=== PATIENT | female | born 1995 | race Caucasian/White ===

== ENCOUNTER 2017-09-30 13:14 | Inpatient (IN) | payer OTHER ==
[~2017-09-30] VITALS: Ht 162.6 cm; Wt 76.4 kg
[2017-09-30 15:40] VITALS: BP 146/89
[2017-09-30] MEDS ORDERED: TUBERCULIN, PURIFIED PROTEIN DERIVATIVE 5 TU/0.1 ML SYG ID ONE (16:00)
[2017-09-30] MEDS ORDERED: PROMETHAZINE HCL 25 MG TABLET PO PRN (16:00)
[2017-09-30] MEDS ORDERED: LOPERAMIDE HCL 2 MG CAPSULE PO PRN (16:00)
[2017-09-30] MEDS ORDERED: MAG HYDROX/AL HYDROX/SIMETH ES 30 ML SUSPENSION UDCUP PO PRN (16:00)
[2017-09-30] MEDS ORDERED: HydrOXYzine PAMOATE 50 MG CAPSULE PO PRN (16:00)
[2017-09-30] MEDS ORDERED: ZOLPIDEM TARTRATE 10 MG TABLET PO PRN (16:00)
[2017-09-30] MEDS ORDERED: ACETAMINOPHEN 325 MG TABLET PO PRN (16:00)
[2017-09-30] MEDS ORDERED: OLANZapine 5 MG RAPDIS TABLET PO PRN (16:00)
[2017-09-30] MEDS ORDERED: MAGNESIUM HYDROXIDE SUSPENSION 30 ML UDCUP PO PRN (16:00)
[2017-09-30] MEDS ORDERED: GuaiFENesin/D-METHORPHAN [SUGAR-FREE] 200-20MG/10 ML SYRUP UDCUP PO PRN (16:00)
[2017-09-30] MEDS ORDERED: LORazepam 2 MG TABLET PO PRN (16:00)
[2017-09-30] MEDS ORDERED: DiphenhydrAMINE HCL 50 MG/ML VIAL IM ONE (16:15)
[2017-09-30] MEDS ORDERED: LORazepam 2 MG/ML VIAL IM ONE (16:15)
[2017-09-30] MEDS ORDERED: HALOPERIDOL LACTATE 5 MG/ML VIAL IM ONE (16:15)
[2017-09-30 16:35] VITALS: BP 141/91
[2017-09-30 17:00] VITALS: BP 116/72
[2017-09-30] MEDS ORDERED: INFLUENZA VIRUS VACCINE QVS 2017-18 (3YR+)/PF 60 MCG/0.5 ML SYRINGE IM ONE (18:15)
[2017-09-30] MEDS: THIAMINE HCL 100 MG TABLET PO SCH (18:44)
[2017-09-30] MEDS ORDERED: OLANZapine 5 MG RAPDIS TABLET PO SCH (21:00)
[2017-10-01 06:46] VITALS: BP 117/63
[2017-10-01] MEDS: THIAMINE HCL 100 MG TABLET PO SCH ×2 (08:48→16:04)
[2017-10-01] MEDS: MULTIVITAMINS WITH MINERALS, THERAPEUTIC TABLET PO SCH (08:48)
[2017-10-01] MEDS: FOLIC ACID 1 MG TABLET PO SCH (08:48)
[2017-10-01 09:00] VITALS: BP 117/76
[2017-10-01 16:02] VITALS: BP 111/67
[2017-10-01] MEDS: OLANZapine 10 MG RAPDIS TABLET PO SCH (20:03)
[2017-10-02 06:15] VITALS: BP 110/72
[2017-10-02 08:13] LABS: BASOPHILS % (AUTO) 0.3 % (0.0-2.0); EOSINOPHILS % (AUTO) 1.1 % (1.0-6.0); HEMATOCRIT 40.4 % (36-46); HEMOGLOBIN 13.8 g/dL (12.0-16.0); LYMPHOCYTES # (AUTO) 2.8 K/uL (1.0-4.8); LYMPHOCYTES % (AUTO) 28.1 % (22.0-44.0); MEAN CORPUSCULAR HEMOGLOBIN 30.2 pg (26.0-34.0); MEAN CORPUSCULAR HGB CONC 34.2 G/dL (31.0-37.0); MEAN CORPUSCULAR VOLUME 88 fL (80-100); MONOCYTES # (AUTO) 0.5 K/uL (0.1-1.0); MONOCYTES % (AUTO) 5.3 % (2.0-9.0); NEUTROPHILS # (AUTO) 6.6 K/uL (1.8-7.7); NEUTROPHILS % (AUTO) 65.2 % (40.0-70.0); PLATELET COUNT (AUTO) 360 K/uL (150-450); RED BLOOD CELL COUNT(AUTO) 4.58 MIL/uL (4.00-5.20); RED CELL DISTRIBUTION WIDTH 14.8 % (11.5-14.5); WHITE BLOOD COUNT (AUTO) 10.1 K/uL (4.5-11.0)
[2017-10-02 08:48] LABS: HEMOGLOBIN A1C 5.1 % (4.5-6.2)
[2017-10-02 08:57] LABS: ALANINE AMINOTRANSFERASE 24 U/L (12-78); ALBUMIN 3.7 g/dL (3.4-5.0); ANION GAP 9 mmol/L (8-16); ASPARTATE AMINOTRANSFERASE 16 U/L (15-37); BILIRUBIN,TOTAL 0.6 mg/dL (0.1-1.0); CALCIUM, TOTAL 8.9 mg/dL (8.8-10.5); CARBON DIOXIDE 27 mmol/L (22-29); CHLORIDE 104 mmol/L (98-107); CHOL/HDL RATIO 3.4 (3.9-5.7); CREATININE 0.74 mg/dL (0.60-1.30); GLOMERULAR FILTR. RATE CALC > 60 mL/min (>60); POTASSIUM 3.9 mmol/L (3.5-5.1); SODIUM SERUM 140 mmol/L (136-145); THYROID STIMULATING HORMONE 1.04 uIU/mL (0.36-3.74); UREA NITROGEN, BLOOD 12 mg/dL (7-18)
[2017-10-02] MEDS: THIAMINE HCL 100 MG TABLET PO SCH ×2 (09:10→16:09)
[2017-10-02] MEDS: MULTIVITAMINS WITH MINERALS, THERAPEUTIC TABLET PO SCH (09:10)
[2017-10-02] MEDS: FOLIC ACID 1 MG TABLET PO SCH (09:10)
[2017-10-02 16:00] VITALS: BP 117/68
[2017-10-02] MEDS: OLANZapine 10 MG RAPDIS TABLET PO SCH (20:05)
[2017-10-03 08:22] VITALS: BP 141/79
[2017-10-03] MEDS: FOLIC ACID 1 MG TABLET PO SCH (08:44)
[2017-10-03] MEDS: THIAMINE HCL 100 MG TABLET PO SCH ×2 (08:44→16:10)
[2017-10-03] MEDS: MULTIVITAMINS WITH MINERALS, THERAPEUTIC TABLET PO SCH (08:44)
[2017-10-03 16:01] VITALS: BP 113/76
[2017-10-03] MEDS: OLANZapine 10 MG RAPDIS TABLET PO SCH (20:18)
[2017-10-04] MEDS: FOLIC ACID 1 MG TABLET PO SCH (08:05)
[2017-10-04] MEDS: THIAMINE HCL 100 MG TABLET PO SCH ×2 (08:05→17:12)
[2017-10-04] MEDS: MULTIVITAMINS WITH MINERALS, THERAPEUTIC TABLET PO SCH (08:05)
[2017-10-04 16:10] VITALS: BP 123/76
[2017-10-04] MEDS ORDERED: OLAN10TA6 PO ×2 (19:11→19:14)
[2017-10-04] MEDS: OLANZapine 10 MG RAPDIS TABLET PO SCH (20:00)
== END 2017-10-04 20:00 | disposition left against medical advice (07) | DRG 885 ==
LOC: B3A 16:05 → EDSTATUS 16:50
PROVIDERS: ADMIT Psychiatry & Neurology Psychiatry; ATTEND Psychiatry & Neurology Psychiatry
DX: F29 Unspecified psychosis not due to a substance or known physiological condition (principal); Z91.19 Patient's noncompliance with other medical treatment and regimen; F10.10 Alcohol abuse, uncomplicated; I10 Essential (primary) hypertension; R00.0 Tachycardia, unspecified; Z81.8 Family history of other mental and behavioral disorders; F32.9 Major depressive disorder, single episode, unspecified; G47.00 Insomnia, unspecified; R51 Headache; Z71.41 Alcohol abuse counseling and surveillance of alcoholic; Z71.51 Drug abuse counseling and surveillance of drug abuser; Z53.21 Procedure and treatment not carried out due to patient leaving prior to being seen by health care provider
CPT/HCPCS: 83036; 84439; 84443; 86592; 90471; J1200; J1630; J2060

== ENCOUNTER 2021-08-14 11:22 | Emergency (ER) | payer MEDICAID ==
[~2021-08-14] VITALS: Ht 165.1 cm; Wt 94.5 kg
[~2021-08-14 11:22] MED LIST: OLAN10TA26 PO
[2021-08-14 11:26] VITALS: BP 117/67
[2021-08-14 12:11] LABS: COVID AG,FIA SOURCE NASOPHARYNGEAL
== END 2021-08-14 12:45 | disposition home or self-care (01) ==
LOC: EMS 11:22
DX: J02.9 Acute pharyngitis, unspecified (principal); Z20.822 Contact with and (suspected) exposure to COVID-19
CPT/HCPCS: 99283